=== PATIENT | female | born 1985 | race Caucasian/White ===

== ENCOUNTER 2017-01-24 18:52 | Emergency (ER) | payer BC ==
[2017-01-24 19:54] VITALS: BP 129/77
== END 2017-01-24 19:54 | disposition home or self-care (01) ==
LOC: ED 18:52
DX: J45.909 Unspecified asthma, uncomplicated (principal)

== ENCOUNTER 2019-08-30 11:12 | Emergency (ER) | payer BC ==
[~2019-08-30] VITALS: Ht 154.9 cm; Wt 95.3 kg
[2019-08-30 11:40] VITALS: Ht 154.9 cm; Wt 95.3 kg
[2019-08-30 13:23] VITALS: BP 115/80
== END 2019-08-30 13:23 | disposition home or self-care (01) ==
LOC: ED 11:12
DX: S16.1XXA Strain of muscle, fascia and tendon at neck level, initial encounter (principal); S83.91XA Sprain of unspecified site of right knee, initial encounter; M79.10 Myalgia, unspecified site; J45.909 Unspecified asthma, uncomplicated; V49.49XA Driver injured in collision with other motor vehicles in traffic accident, initial encounter; Y93.I9 Activity, other involving external motion; Y92.413 State road as the place of occurrence of the external cause; Y99.8 Other external cause status
CPT/HCPCS: 72072